=== PATIENT | male | born 1990 | race Caucasian/White ===

== ENCOUNTER 2018-04-15 15:36 | Emergency (ER) | payer MEDICAID ==
[~2018-04-15] VITALS: Ht 172.7 cm; Wt 84.8 kg
[~2018-04-15 15:36] MED LIST: IBUP-1986 PO
[2018-04-15] MEDS ORDERED: PENI500T2 PO (16:25)
[2018-04-15 16:32] VITALS: BP 118/67
== END 2018-04-15 16:37 | disposition home or self-care (01) ==
LOC: ER 15:37
DX: K08.89 Other specified disorders of teeth and supporting structures (principal); F17.200 Nicotine dependence, unspecified, uncomplicated; Z79.899 Other long term (current) drug therapy
CPT/HCPCS: 99283

== ENCOUNTER 2018-08-15 20:50 | Emergency (ER) | payer MEDICAID ==
[~2018-08-15] VITALS: Ht 170.2 cm; Wt 87.3 kg
[2018-08-15 21:01] VITALS: BP 135/65
[2018-08-15] MEDS ORDERED: dexamethasone sod phosphate 10mg/ml inj IM STA (23:18)
[2018-08-15] MEDS ORDERED: penicillin G benzathine 1.2 million unit/2ml syringe IM ONE (23:20)
== END 2018-08-15 23:37 | disposition home or self-care (01) ==
LOC: ER 20:51
DX: J02.9 Acute pharyngitis, unspecified (principal); Z79.899 Other long term (current) drug therapy; Z60.2 Problems related to living alone
CPT/HCPCS: 96372; 99284; J0561; J1100

== ENCOUNTER 2018-10-18 17:43 | Emergency (ER) | payer MEDICAID ==
[~2018-10-18] VITALS: Ht 175.3 cm; Wt 88.0 kg
[2018-10-18 17:55] VITALS: BP 151/40
[2018-10-18] MEDS ORDERED: AMOX-580 PO (20:14)
[2018-10-18] MEDS ORDERED: amox tr/potassium clavulanate 875/125mg TAB PO ONE (20:15)
[2018-10-18] MEDS ORDERED: IBUP-1984 PO (20:25)
== END 2018-10-18 20:27 | disposition home or self-care (01) ==
LOC: ER 17:44
DX: K04.7 Periapical abscess without sinus (principal); K02.9 Dental caries, unspecified; Z60.2 Problems related to living alone; Z79.2 Long term (current) use of antibiotics; Z79.899 Other long term (current) drug therapy
CPT/HCPCS: 99283

== ENCOUNTER 2023-04-14 20:50 | Emergency (ER) | payer MEDICAID ==
[~2023-04-14] VITALS: Ht 167.6 cm; Wt 100.0 kg
[2023-04-14 20:54] VITALS: BP 130/68
[2023-04-14] MEDS ORDERED: tetanus & diphtheria toxoid (Td) vaccine 0.5ml IMVAC ONE (21:20)
[2023-04-14] MEDS ORDERED: TETanus/Pertussis (Acell)/Diphther VAC/PF (Tdap-Adult) 0.5ml syringe IMVAC ONE (21:25)
== END 2023-04-14 21:49 | disposition home or self-care (01) ==
LOC: ER 20:50
DX: S60.459A Superficial foreign body of unspecified finger, initial encounter (principal); X58.XXXA Exposure to other specified factors, initial encounter; Y93.89 Activity, other specified; Y92.89 Other specified places as the place of occurrence of the external cause; Y99.8 Other external cause status
CPT/HCPCS: 90471; 90715; 99284